=== PATIENT | female | born 1980 | race Caucasian/White ===

== ENCOUNTER 2016-06-28 14:09 | Emergency (ER) | payer MEDICAID ==
[~2016-06-28] VITALS: Ht 172.7 cm; Wt 84.0 kg
[~2016-06-28 14:09] MED LIST: CALC600T5 PO; CEPH-443 PO; FERR240T9 PO; HYDR-906 PO; IBUP-1542 PO; PREN-39 PO
[2016-06-28 14:28] VITALS: Ht 172.7 cm; Wt 84.0 kg
--- NOTE | 2016-06-28 15:28 | ERD ---
ER Documentation Chief Complaint Date/Time DATE: 06/28/16 TIME: 15:25 Chief Complaint ENCOUNTER FOR WOUND CHECK ON LT 5TH FINGER HPI This 34-year-old female who presents to emergency department today for a wound check of a laceration she sustained on her left fifth finger 2 days ago. She states she is taking her antibiotics as prescribed. Denies any fevers or chills. ROS All systems reviewed and are negative except as per history of present illness. Medications Home Meds Active Scripts Ibuprofen* (Motrin*) 600 Mg Tab, 600 MG PO Q6, #30 TAB Prov:ALISSON ROMERO PA-C 06/26/16 Hydrocodone/Acetaminophen ([place] 5-325 Tablet) 1 Each Tablet, 1 TAB PO Q6H Y for PAIN, #10 TAB Prov:ALISSON ROMERO PA-C 06/26/16 Cephalexin* (Keflex*) 500 Mg Capsule, 500 MG PO QID for 7 Days, CAP Prov:ALISSON ROMERO PA-C 06/26/16 Ibuprofen* (Ibuprofen*) 600 Mg Tab, 600 MG PO Q6, #20 0 Refills Prov:LUKAS GRANT MD 05/04/15 Reported Medications Calcium Carbonate (CALCIUM) 600 Mg Tablet, 600 MG PO 05/02/15 Ferrous Gluconate (Iron) 1 Tab Tablet, 1 TAB PO 05/02/15 Vits W-Ca,Fe,Fa(<1MG) ( Vitamins) 1 Tab Tablet, 1 TAB PO 04/26/15 Allergies Allergies: Coded Allergies: No Known Allergy (Unverified , 06/26/16) PMhx/Soc History of Surgery: No Anesthesia Reaction: No Hx Neurological Disorder: No Hx Respiratory Disorders: No Hx Cardiac Disorders: No Hx Psychiatric Problems: No Hx Miscellaneous Medical Probl: Yes (ARTHRITIS) Hx Alcohol Use: No Hx Substance Use: No Hx Tobacco Use: No Physical Exam Vitals Vital Signs Date Time Temp Pulse Resp B/P Pulse Ox O2 Delivery O2 Flow Rate FiO2 06/28/16 14:28 99.0 77 16 109/59 100 Physical Exam Const: No acute distress Head: Atraumatic Eyes: Normal Conjunctiva ENT: Normal External Ears, Nose and Mouth. Neck: Full range of motion..~ No meningismus. Resp: Clear to auscultation bilaterally Cardio: Regular rate and rhythm, no murmurs Abd: Soft, non tender, non distended. Normal bowel sounds Skin: 6 sutures placed palmar aspect DIP of that finger left hand MSK: Left hand fifth finger with full active range of motion. No erythema or warmth. No purulent drainage. Neur: Awake and alert Psych: Normal Mood and Affect Procedures/MDM This is a 32-year-old female who presents to the emergency department today for a wound check of a laceration that she sustained 2 days ago. On physical exam patient has full active range of motion of her fifth digit. Wound appears to be healing well. There is no erythema or warmth. Patient is afebrile and otherwise well appearing. Low suspicion for sepsis, deep space infection or cellulitis. Patient was instructed to return in 5-7 days for suture removal. She was instructed to continue taking her antibiotics as prescribed. At this time the patient is stable for discharge and outpatient management. Patient should follow up with their PCP in the next 1-2 days. They may return to the emergency department sooner for any persistent or worsening of symptoms. Patient understood and agreed with the plan. Departure Diagnosis: Primary Impression: Encounter for wound re-check Condition: Fair Patient Instructions: Wound Care Referrals: your PCP Additional Instructions: Llame al doctor LAUREN y renee balbir HARSHA PARA DENTRO DE 1-2 JAMES.Dgale a la secretaria que nosotros le instruimos hacer esta harsha.Avise o llame si magallon condicin se empeora antes de la harsha. Regresa aqui si peor o no mejor. Continued taking antibiotics as prescribed Pain medications as needed Suture Removal in 5-7 day ALISSON ROMERO PA-C Jun 28, 2016 15:27
== END 2016-06-28 15:24 | disposition home or self-care (01) ==
LOC: FTE 14:09
DX: Z48.01 Encounter for change or removal of surgical wound dressing (principal)
CPT/HCPCS: 99281

== ENCOUNTER 2017-01-13 10:18 | Emergency (ER) | payer MEDICAID ==
[~2017-01-13] VITALS: Ht 167.6 cm; Wt 82.5 kg
[2017-01-13 10:19] VITALS: Ht 167.6 cm; Wt 82.5 kg
[2017-01-13] MEDS ORDERED: ONDANSETRON 4 MG INJ IV STA (10:45)
[2017-01-13] MEDS ORDERED: KETOROLAC 30 MG INJ IV STA (10:45)
[2017-01-13 11:10] LABS: ADD SCAN DIFF NO
[2017-01-13 11:14] LABS: BASOPHILS % 0.4 % (0.0-2.0); EOSINOPHILS % 0.2 % (0.0-7.0); HEMATOCRIT 40.9 % (37.0-47.0); HEMOGLOBIN 13.2 g/dl (12.0-16.0); LYMPHOCYTES # 0.9 10^3/ul (0.8-2.9); LYMPHOCYTES % 11.6 % (15.0-51.0); MEAN CORPUSCULAR HEMOGLOBIN 28.1 pg (29.0-33.0); MEAN CORPUSCULAR HGB CONC 32.3 g/dl (32.0-37.0); MEAN CORPUSCULAR VOLUME 87.2 fl (82.0-101.0); MEAN PLATELET VOLUME 9.6 fl (7.4-10.4); MONOCYTE # 0.4 10^3/ul (0.3-0.9); MONOCYTES % 5.5 % (0.0-11.0); NEUTROPHIL # 6.6 10^3/ul (1.6-7.5); NEUTROPHILS % 82.1 % (39.0-77.0); PLATELET COUNT 379 10^3/UL (140-415); RED BLOOD COUNT 4.69 10^6/ul (4.20-5.40); RED CELL DISTRIBUTION WIDTH 13.7 % (11.5-14.5)
[2017-01-13 11:25] LABS: ADD UMIC YES; UR ASCORBIC ACID NEGATIVE (NEGATIVE); UR BACTERIA FEW /HPF (NONE SEEN); UR BILIRUBIN (Dip) NEGATIVE (NEGATIVE); UR BLOOD (Dip) NEGATIVE (NEGATIVE); UR CLARITY CLEAR (CLEAR); UR COLOR YELLOW (YELLOW); UR GLUCOSE (Dip) NEGATIVE (NEGATIVE); UR KETONES (Dip) NEGATIVE (NEGATIVE); UR LEUKOCYTE ESTERASE (Dip) TRACE Leu/ul (NEGATIVE); UR NITRITE (Dip) NEGATIVE (NEGATIVE); UR RBC 3 /HPF (0-5); UR SPECIFIC GRAVITY (Dip) 1.012 (1.003-1.030); UR TOTAL PROTEIN (Dip) NEGATIVE (NEGATIVE); UR UROBILINOGEN (Dip) NEGATIVE (NEGATIVE)
[2017-01-13 11:34] LABS: ALBUMIN/GLOBULIN RATIO 1.05; BILIRUBIN,INDIRECT 0.4 mg/dl (0-1.1); BILIRUBIN,TOTAL 0.4 mg/dl (0.2-1.3); CREATININE 0.63 mg/dl (0.44-1.00); TOTAL PROTEIN 7.8 g/dl (6.1-8.1)
[2017-01-13] MEDS ORDERED: CEFTRIAXONE 1 GM/50 ML (PMX) 50 ML IVPB ONE (12:00)
[2017-01-13] MEDS ORDERED: CEPH-443 PO (12:41)
[2017-01-13] MEDS ORDERED: ONDA8TAB14 PO (12:41)
[2017-01-13] MEDS ORDERED: IBUP-1542 PO (12:42)
--- NOTE | 2017-01-13 13:09 | ERD ---
ER Documentation Chief Complaint Date/Time DATE: 01/13/17 TIME: 13:06 Chief Complaint HEADCAHE , BODY ACHE , CHILLS X 3 DAYS HPI 36-year-old female presents with bitemporal headache, body aches, and chills last 3 days. She possibly has some mild left low back pain. She has had approximately 2 episodes of vomiting, nonbilious nonbloody. She denies any abdominal pain. She denies fever but has low-grade fever at triage. ROS All systems reviewed and are negative except as per history of present illness. Medications Home Meds Active Scripts Ibuprofen* (Motrin*) 600 Mg Tab, 600 MG PO Q6, #15 TAB Prov:SHANA PARKER MD 01/13/17 Ondansetron (Ondansetron Odt) 8 Mg Tab.rapdis, 8 MG PO Q6H Y for NAUSEA AND/OR VOMITING, #8 TAB Prov:SHANA PARKER MD 01/13/17 Cephalexin* (Keflex*) 500 Mg Capsule, 500 MG PO QID for 7 Days, CAP Prov:SHANA PARKER MD 01/13/17 Ondansetron (Ondansetron Odt) 8 Mg Tab.rapdis, 8 MG PO Q6H Y for NAUSEA AND/OR VOMITING, #8 TAB Prov:SHANA PARKER MD 01/13/17 Ibuprofen* (Motrin*) 600 Mg Tab, 600 MG PO Q6, #30 TAB Prov:ALISSON ROMERO PA-C 06/26/16 Hydrocodone/Acetaminophen ([place] 5-325 Tablet) 1 Each Tablet, 1 TAB PO Q6H Y for PAIN, #10 TAB Prov:ALISSON ROMERO PA-C 06/26/16 Cephalexin* (Keflex*) 500 Mg Capsule, 500 MG PO QID for 7 Days, CAP Prov:ALISSON ROMERO PA-C 06/26/16 Ibuprofen* (Ibuprofen*) 600 Mg Tab, 600 MG PO Q6, #20 0 Refills Prov:LUKAS GRANT MD 05/04/15 Reported Medications Calcium Carbonate (CALCIUM) 600 Mg Tablet, 600 MG PO 05/02/15 Ferrous Gluconate (Iron) 1 Tab Tablet, 1 TAB PO 05/02/15 Vits W-Ca,Fe,Fa(<1MG) ( Vitamins) 1 Tab Tablet, 1 TAB PO 04/26/15 Allergies Allergies: Coded Allergies: No Known Allergy (Unverified , 06/26/16) PMhx/Soc History of Surgery: No Anesthesia Reaction: No Hx Neurological Disorder: No Hx Respiratory Disorders: No Hx Cardiac Disorders: No Hx Psychiatric Problems: No Hx Miscellaneous Medical Probl: Yes (ARTHRITIS) Hx Alcohol Use: No Hx Substance Use: No Hx Tobacco Use: No Physical Exam Vitals Vital Signs Date Time Temp Pulse Resp B/P Pulse Ox O2 Delivery O2 Flow Rate FiO2 01/13/17 10:19 100.4 89 18 98/57 100 Physical Exam Const: [] Alert, [id number] per Head: Atraumatic Eyes: Normal Conjunctiva ENT: Normal External Ears, Nose and Mouth. Neck: Full range of motion..~ No meningismus. Resp: Clear to auscultation bilaterally Cardio: Regular rate and rhythm, no murmurs Abd: Soft, non tender, non distended. Normal bowel sounds Skin: No petechiae or rashes Back: No midline tenderness or deformities. Possibly minimal left CVA tenderness. Ext: No cyanosis, or edema Neur: Awake and alert Psych: Normal Mood and Affect Result Diagram: 01/13/17 1055 01/13/17 1055 Results 24 hrs Laboratory Tests Test 01/13/17 10:15 01/13/17 10:55 Urine Color YELLOW Urine Clarity CLEAR Urine pH 9.0 Urine Specific [place] 1.012 Urine Ketones NEGATIVEmg/dL Urine Nitrite NEGATIVEmg/dL Urine Bilirubin NEGATIVEmg/dL Urine Urobilinogen NEGATIVEmg/dL Urine Leukocyte Esterase TRACELeu/ul Urine Microscopic RBC 3/HPF Urine Microscopic WBC 2/HPF Urine Bacteria FEW/HPF Urine Hemoglobin NEGATIVEmg/dL Urine Glucose NEGATIVEmg/dL Urine Total Protein NEGATIVEmg/dl White Blood Count 8.010^3/ul Red Blood Count 4.6910^6/ul Hemoglobin 13.2g/dl Hematocrit 40.9% Mean Corpuscular Volume 87.2fl Mean Corpuscular Hemoglobin 28.1pg Mean Corpuscular Hemoglobin Concent 32.3g/dl Red Cell Distribution Width 13.7% Platelet Count 23366^3/UL Mean Platelet Volume 9.6fl Neutrophils % 82.1% Lymphocytes % 11.6% Monocytes % 5.5% Eosinophils % 0.2% Basophils % 0.4% Nucleated Red Blood Cells % 0.0/100WBC Neutrophils # 6.610^3/ul Lymphocytes # 0.910^3/ul Monocytes # 0.410^3/ul Eosinophils # 0.010^3/ul Basophils # 0.010^3/ul Nucleated Red Blood Cells # 0.010^3/ul Sodium Level 144mmol/L Potassium Level 4.0mmol/L Chloride Level 99mmol/L Carbon Dioxide Level 27mmol/L Anion Gap 22 Blood Urea Nitrogen 7mg/dl Creatinine 0.63mg/dl Glucose Level 92mg/dl Calcium Level 9.0mg/dl Total Bilirubin 0.4mg/dl Direct Bilirubin 0.00mg/dl Indirect Bilirubin 0.4mg/dl Aspartate Amino Transf (AST/SGOT) 29IU/L Alanine Aminotransferase (ALT/SGPT) 45IU/L Alkaline Phosphatase 149IU/L Total Protein 7.8g/dl Albumin 4.0g/dl Globulin 3.80g/dl Albumin/Globulin Ratio 1.05 Lipase 58U/L Current Medications Medications (Trade) Dose Ordered Sig/Anish Route PRN Reason Start Time Stop Time Status Last Admin Dose Admin Ondansetron HCl (Zofran Inj) 4 mg ONCE STAT IV 01/13/17 10:45 01/13/17 10:46 DC 01/13/17 11:05 Ketorolac Tromethamine 30 mg 30 mg ONCE STAT IV 01/13/17 10:45 01/13/17 10:46 DC 01/13/17 11:05 Ceftriaxone Sodium (Rocephin) 50 ml @ 100 mls/hr ONCE ONCE IVPB 01/13/17 12:00 01/13/17 12:29 DC 01/13/17 12:13 Procedures/MDM Urine shows minimal signs of UTI with trace leukocyte esterase and few bacteria. CBC is normal. CMP shows no Abnormalities. HCG is negative. Patient was given Zofran 4 mg IV and Toradol 30 mg IV. Patient was given Rocephin 1 g IV for fever of uncertain etiology and signs of UTI. Patient presents with febrile illness, body aches and vomiting of uncertain etiology. Current signs and symptoms do not persist abdominal pain, appendicitis, hepatobiliary disease. She may have a viral illness but will be treated for UTI given mild flank pain and signs of UTI and evaluation. Patient is advised to return for vomiting despite treatment, worsening pain, new worsening symptoms or with drink fluids at home and follow-up with primary care doctor this week. Departure Diagnosis: Primary Impression: UTI (urinary tract infection) Urinary tract infection type: acute cystitis Hematuria presence: without hematuria Qualified Code: N30.00 - Acute cystitis without hematuria Additional Impressions: Headache Headache type: unspecified Headache chronicity pattern: unspecified pattern Intractability: not intractable Qualified Code: R51 - Nonintractable headache, unspecified chronicity pattern, unspecified headache type Vomiting Vomiting type: unspecified Vomiting Intractability: unspecified Nausea presence: unspecified Qualified Code: R11.10 - Vomiting, intractability of vomiting not specified, presence of nausea not specified, unspecified vomiting type Condition: Stable Patient Instructions: Understanding Urinary Tract Infections (UTIs), Fever Control (Adult), Vomiting (6Y-Adult) Additional Instructions: HAY INFECCION EN ORINA, ROSALINDA POSIBLEMENTE un virus que dura 2-4 [place]. cheque otro jonna el proximo marley para mas simptomas- vomito, dolor, michael, problemas con respirando, o con [place] doctor primario. ADDIE MUCHO AGUA EN CASA. SHANA PARKER MD Jan 13, 2017 13:08
== END 2017-01-13 13:25 | disposition home or self-care (01) ==
LOC: FTE 10:18
DX: N30.00 Acute cystitis without hematuria (principal); R11.10 Vomiting, unspecified
CPT/HCPCS: 80053; 81001; 83690; 85025; 87086; J0696; J1885; J2405; 36415; 96365; 96375

== ENCOUNTER 2018-10-12 17:20 | Emergency (ER) | payer MEDICAID ==
[~2018-10-12] VITALS: Ht 160 cm; Wt 70.0 kg
[~2018-10-12 17:20] MED LIST changes: +HYDR-4011 PO; -HYDR-906 PO; +ONDA8TAB14 PO
[2018-10-12 17:42] VITALS: BP 95/57; PULSE 65; RESP 19; Ht 160 cm; Wt 70.0 kg
[2018-10-12] MEDS ORDERED: PRED20TA PO (18:26)
[2018-10-12] MEDS ORDERED: BEN25 PO (18:26)
[2018-10-12] MEDS ORDERED: predniSONE 20 MG TAB PO ONE (18:30)
[2018-10-12] MEDS ORDERED: DIPHENHYDRAMINE 50 MG INJ IM ONE (18:30)
--- NOTE | 2018-10-12 18:30 | ERD ---
ER Documentation Chief Complaint Chief Complaint SKIN ITCHINESS ; ALLERGIC REACTIONS HPI 38-year female presents with an itchy rash on the chest and back and neck for last 2 days. May have started after eating meat. She has previous history of allergies. Denies fevers, shortness of breath, vomiting or abdominal pain, additional complaints. ROS All systems reviewed and are negative except as per history of present illness. Medications Home Meds Active Scripts Prednisone* (Prednisone*) 20 Mg Tab, 40 MG PO DAILY for 4 Days, TAB Start October 13, 2018 Prov:SHANA PARKER MD 10/12/18 Diphenhydramine Hcl* (Benadryl*) 25 Mg Cap, 25 MG PO Q6, #20 CAP Prov:SHANA PARKER MD 10/12/18 Ibuprofen* (Motrin*) 600 Mg Tab, 600 MG PO Q6, #15 TAB Prov:SHANA PARKER MD 01/13/17 Ondansetron (Ondansetron Odt) 8 Mg Tab.rapdis, 8 MG PO Q6H PRN for NAUSEA AND/OR VOMITING, #8 TAB Prov:SHANA PARKER MD 01/13/17 Cephalexin* (Keflex*) 500 Mg Capsule, 500 MG PO QID for 7 Days, CAP Prov:SHANA PARKER MD 01/13/17 Ondansetron (Ondansetron Odt) 8 Mg Tab.rapdis, 8 MG PO Q6H PRN for NAUSEA AND/OR VOMITING, #8 TAB Prov:SHANA PARKER MD 01/13/17 Ibuprofen* (Motrin*) 600 Mg Tab, 600 MG PO Q6, #30 TAB Prov:ALISSON ROMERO PA-C 06/26/16 Hydrocodone/Acetaminophen ([place] 5-325 Tablet) 1 Each Tablet, 1 TAB PO Q6H PRN for PAIN, #10 TAB Prov:ALISSON ROMERO PA-C 06/26/16 Cephalexin* (Keflex*) 500 Mg Capsule, 500 MG PO QID for 7 Days, CAP Prov:ALISSON ROMEROC 06/26/16 Ibuprofen* (Ibuprofen*) 600 Mg Tab, 600 MG PO Q6, #20 0 Refills Prov:LUKAS GRANT MD 05/04/15 Reported Medications Calcium Carbonate (CALCIUM) 600 Mg Tablet, 600 MG PO 05/02/15 Ferrous Gluconate (Iron) 1 Tab Tablet, 1 TAB PO 05/02/15 Vits W-Ca,Fe,Fa(<1MG) ( Vitamins) 1 Tab Tablet, 1 TAB PO 04/26/15 Allergies Allergies: Coded Allergies: No Known Allergy (Unverified , 06/26/16) PMhx/Soc History of Surgery: No Anesthesia Reaction: No Hx Neurological Disorder: No Hx Respiratory Disorders: No Hx Cardiac Disorders: No Hx Psychiatric Problems: No Hx Miscellaneous Medical Probl: Yes (ARTHRITIS) Hx Alcohol Use: No Hx Substance Use: No Hx Tobacco Use: No Smoking Status: Never smoker FmHx Family History: No diabetes, No coronary disease, No other Physical Exam Vitals Vital Signs Date Temp Pulse Resp B/P (MAP) Pulse Ox O2 O2 Flow FiO2 Time Delivery Rate 10/12/18 98.6 65 19 95/57 (70) 99 17:42 Physical Exam Const: No acute distress Head: Atraumatic Eyes: Normal Conjunctiva ENT: Normal External Ears, Nose and Mouth. Neck: Full range of motion. No meningismus. Resp: Clear to auscultation bilaterally Cardio: Regular rate and rhythm, no murmurs Abd: Soft, non tender, non distended. Normal bowel sounds Skin: No petechiae or purpura. Blanching erythematous wheal type rash on the chest and neck. No induration, streaking or vesicles. Back: No midline or flank tenderness Ext: No cyanosis, or edema Neur: Awake and alert Psych: Normal Mood and Affect Results 24 hrs Current Medications Medications Dose Sig/Anish Start Time Status Last (Trade) Ordered Route PRN Stop Time Admin Dose Reason Admin Prednisone 40 mg ONCE ONCE 10/12/18 10/12/18 (Prednisone) PO 18:30 18:23 10/12/18 18:31 25 mg ONCE ONCE 10/12/18 10/12/18 Diphenhydrami IM 18:30 18:24 ne HCl 10/12/18 18:31 (Benadryl) Procedures/MDM Patient presents with signs and symptoms of allergic rash or urticaria. There is no signs of cellulitis, purpura, life-threatening rashes. She was given Benadryl 25 mg IM and prednisone 40 mg by mouth. She will be treated with prednisone, continuation of Benadryl, primary care follow-up and return precautions for fevers, shortness of breath, worsening redness, new worsening symptoms. The patient was stable with no new complaints during the ER course. Clinically, there is no current evidence to suggest meningitis, sepsis, acute abdomen, pneumonia, stroke, acute coronary syndrome, pulmonary embolism, aortic dissection or any other emergent condition appearing to require further evaluation or hospitalization. Patient counseled regarding my diagnostic impression and care plan. Prior to discharge all questions answered. Pt agrees with treatment plan and understands strict return precautions. Pt is instructed to follow up with primary care provider within 24-48 hours. Precautionary instructions provided including instructions to return to the ER if not improving or for any worsening or changing symptoms or concerns. Departure Diagnosis: Primary Impression: Allergic reaction Encounter type: initial encounter Qualified Codes: T78.40XA - Allergy, unspecified, initial encounter Condition: Stable Patient Instructions: Hives Referrals: NO PRIMARY,CARE PHYSICIAN (PCP) Additional Instructions: Cheque otro vez con [place] doctor primario en el proximo [place] or regresa para mas o nueva simptomas. SHANA PARKER MD Oct 12, 2018 18:30
== END 2018-10-12 19:00 | disposition home or self-care (01) ==
LOC: FTE 17:20
DX: T78.1XXA Other adverse food reactions, not elsewhere classified, initial encounter (principal)
CPT/HCPCS: 96372; J1200; J7512; Z7502